=== PATIENT | male | born 1965 | race Caucasian/White ===

== ENCOUNTER 2019-03-25 19:55 | Emergency (ER) | payer OTHER ==
[2019-03-25 20:10] VITALS: BP 116/77
--- NOTE | 2019-03-25 20:47 | EDPHY ---
H & P Stated Complaint: epigastric pain Time Seen by Provider: 03/25/19 20:10 HPI/ROS: CHIEF COMPLAINT: Epigastric pain, near syncope HISTORY OF PRESENT ILLNESS: 53-year-old male presents to the emergency department with abrupt onset of significant epigastric pain, nausea, diaphoresis , near syncope. This occurred approximately 20 min after he took his 1st dose of a occasions by supplement. Patient was diaphoretic, pale, and lightheaded upon paramedics arrival. Patient has improved en route to the emergency department. Patient was otherwise well prior to this event. No full syncopal episode. No diarrhea. No complaints of chest pain or shortness of breath. REVIEW OF SYSTEMS: A comprehensive 10 system review of systems was reviewed and is otherwise negative aside from elements mentioned in the history of present illness and medical decision making. PAST MEDICAL HISTORY: Patient denies. SOCIAL HISTORY: Nonsmoker. Works as an emergency physician. VITAL SIGNS Reviewed by me. GENERAL: Well-developed, well-nourished, reports his pain is improved. Pain had been 10/10. HEENT: Atraumatic. Eyes: No icterus, no injection. Mouth: moist mucous membranes. No erythema or lesions. Neck: supple with no adenopathy. LUNGS: Clear to auscultation bilaterally, no wheezes, rhonchi or rales. CARDIAC: Regular rate and rhythm, no rubs, murmurs or gallops. ABDOMEN: Soft, no significant epigastric tenderness. No guarding. No rebound. No distension. BACK: No CVA tenderness. EXTREMITIES: No trauma. No edema. Range of motion is normal throughout. NEURO: Alert and oriented, grossly nonfocal. SKIN: Warm and dry, no rash. PSYCHIATRIC: Normal mentation, no agitation. - Personal History Current Tetanus/Diphtheria Vaccine: Yes Current Tetanus Diphtheria and Acellular Pertussis (TDAP): Yes - Medical/Surgical History Hx Asthma: No Hx Chronic Respiratory Disease: No Hx Diabetes: No Hx Cardiac Disease: No Hx Renal Disease: No Hx Cirrhosis: No Hx Alcoholism: No Hx HIV/AIDS: No Hx Splenectomy or Spleen Trauma: No - Social History Smoking Status: Never smoked Constitutional: Initial Vital Signs Temperature (C) 36.3 C 03/25/19 20:07 Heart Rate 57 L 03/25/19 20:07 Respiratory Rate 16 03/25/19 20:07 Blood Pressure 116/77 03/25/19 20:07 O2 Sat (%) 98 03/25/19 20:07 O2 Delivery Mode Room Air Allergies/Adverse Reactions: No Known Allergies Allergy (Unverified 03/25/19 20:07) Home Medications: Medication Instructions Recorded NK [No Known Home Meds] 03/25/19 Medical Decision Making - Diagnostics EKG Interpretation: 12-LEAD EKG: Please see the full report in [facility]. My interpretation: Normal sinus rhythm, rate 51, slightly prolonged IA. No ST or T-wave changes. ED Course/Re-evaluation: IV fluids administered. The patient had EKG which straits no arrhythmia, normal intervals with the exception of a slightly prolonged IA, no ischemic changes. We discussed further evaluation for cardiac causes of his near-syncope symptoms , further evaluation for gastrointestinal diagnosis such as perforated ulcer, pancreatitis, bowel obstruction. At this point patient is feeling better. He and I both believe that this was most likely related to the supplement. Patient was advised to take omeprazole for the next 2 weeks, follow up with his primary care physician if his symptoms recur, and to return to the emergency department or seek care urgently if he is worsening or has recurrence of his symptoms. He was discharged with his . Differential Diagnosis: Differential diagnoses for the patient's symptom complex was considered including but not limited to gastritis, GERD, esophageal spasm, gastric perforation, pancreatitis, vasovagal near-syncope, arrhythmias Departure - Departure Disposition: Home, Routine, Self-Care Clinical Impression: Vasovagal near syncope Abdominal pain Qualifiers: Abdominal location: epigastric Qualified Code(s): R10.13 - Epigastric pain Condition: Good Instructions: Acute Abdominal Pain (ED) Additional Instructions: I recommend Maalox or Mylanta if you have ongoing abdominal discomfort. Consider beginning a 2 week course of omeprazole if your symptoms are not rapidly improving. Avoid caffeine, alcohol, and spicy foods for the next several days until your symptoms have resolved. Return to the emergency department or seek care urgently if your symptoms recur , you have recurrent lightheadedness, dizziness, or near syncope. Referrals: NONE *PRIMARY CARE P,. [Primary Care Provider] - As per Instructions
--- NOTE | 2019-03-25 22:33 | CPEKG ---
Test Reason : OPEN Blood Pressure : / mmHG Vent. Rate : 051 BPM Atrial Rate : 051 BPM P-R Int : 215 ms QRS Dur : 082 ms QT Int : 462 ms P-R-T Axes : 048 018 029 degrees QTc Int : 426 ms Sinus rhythm Prolonged UT interval Confirmed by Orin Pardo ([id number] on 03/25/2019 10:33:19 PM Referred By: Orin Pardo Confirmed By:Orin Pardo
== END 2019-03-25 20:50 | disposition home or self-care (01) ==
LOC: EDUNIT#
DX: R55 Syncope and collapse (principal); R10.13 Epigastric pain